=== PATIENT | female | born 1935 | race Two or more races ===

== ENCOUNTER 2018-02-16 12:30 | Emergency (ER) | payer OTHER ==
[~2018-02-16] VITALS: Ht 160 cm; Wt 77.1 kg
[2018-02-16] MEDS ORDERED: XANAX1 MG (12:52)
[2018-02-16] MEDS ORDERED: TOPROL XL25 MG (12:52)
[2018-02-16] MEDS ORDERED: ZANTAC150 MG (12:53)
[2018-02-16] MEDS ORDERED: VOLTAREN100 GM (12:53)
[2018-02-16] MEDS ORDERED: LOSARTAN-HCTZ1 EAC2 (12:53)
== END 2018-02-16 15:27 | disposition home or self-care (01) ==
LOC: ER 12:30
DX: K29.60 Other gastritis without bleeding (principal); K59.09 Other constipation